=== PATIENT | male | born 1965 | race Caucasian/White ===

== ENCOUNTER 2016-02-21 03:40 | Inpatient (IN) | payer OTHER ==
[~2016-02-21] VITALS: Ht 182.9 cm; Wt 106.8 kg
[~2016-02-21 03:40] MED LIST: ADVIL200 MG PO; ALEVE220 M2 PO; AMLODIPINE BESYL5 MG PO; ATIVAN0.5 MG PO; ATORVASTATIN CA80 MG PO; BACLOFEN10 MG PO; BUSPAR10 MG PO; CATAPRES0.1 MG PO; CHLORDIAZEPOXID25 MG PO; CIPROFLOXACIN500 M1 PO; CLINDAMYCIN HC300 MG PO; COLCRYS0.6 MG PO; DAILY VALUE1 EACH PO; DAILY VITAMIN1 EAC8 PO; DESYREL100 MG PO; ENDOCET 5-3251 EACH PO; FLEXERIL10 MG PO; FOLIC ACID1 MG PO; HYDROCHLOROTHIA25 MG PO; INDOCIN25 MG PO; INDOCIN50 MG PO; LIPITOR80 MG PO; LISINOPRIL10 MG PO; LISINOPRIL20 MG PO; LISINOPRIL5 MG PO; LORTAB 10-3251 EACH PO; LOTENSIN20 M1 PO; LOTENSIN20 M2 PO; MAG-OXIDE400 MG PO; METRONIDAZOLE500 MG PO; MOTRIN800 MG PO; NEURONTIN300 MG PO; PAXIL20 MG PO; PERCOCET 5/31 TABLET PO; PREDNISONE10 MG PO; PREDNISONE50 MG PO; SEROQUEL100 MG PO; SERTRALINE HCL50 MG PO; THERAGRAN1 TABLET PO; TRAZODONE HCL100 MG PO; TRAZODONE HCL50 MG PO; TYLENOL EXTRA500 MG PO; Tums,OsCal PO; VITAMIN B-1100 MG PO; ZESTRIL,PRINIVI10 MG PO; celeXA PO
[2016-02-21 04:22] LABS: HEMATOCRIT 44.3 % (38.0-50.0); MCH 34.7 PG (29.0-34.0); MCHC 34.8 G/DL (30.0-36.0); MCV 99.8 FL (86-99); MEAN PLAT.VOLUME 9.9 uM^3 (9.0-12.4); PLATELET COUNT 175 K/uL (156-360); RBC DIS.WIDTH-CV 14.6 % (11.8-14.6); RBC DIS.WIDTH-SD 51.4 % (39-53); RED BLOOD COUNT 4.44 M/uL (4.00-5.50); WHITE BLOOD COUNT 13.7 K/uL (4.1-10.2)
[2016-02-21 04:30] LABS: CHLORIDE 94 mEq/L (99-109); POTASSIUM 3.8 mEq/L (3.7-5.4); SODIUM 138 mEq/L (136-147)
[2016-02-21 04:33] LABS: GLUCOSE 165 mg/dL (70-99)
[2016-02-21 04:34] LABS: ANION GAP 18 MEQ/L (2-14)
[2016-02-21 04:35] LABS: TOTAL BILIRUBIN 1.4 mg/dL (0.0-1.0)
[2016-02-21 04:36] LABS: ALKALINE PHOSPHATASE 133 IU/L (3-129); SERUM ETHYL ALCOHOL < 10 mg/dL
[2016-02-21 04:37] LABS: GFR ESTIMATE (CALCULATED) > 59 mL/min/
[2016-02-21 04:38] LABS: UREA NITROGEN (BUN) 9 mg/dL (9-23)
[2016-02-21 04:40] LABS: LIPASE 46 U/L (1.0-51.0)
[2016-02-21] MEDS ORDERED: ZOFRAN ODT4 MG PO (10:48)
[2016-02-21] MEDS ORDERED: THIAMINE HCL100 MG PO (10:48)
[2016-02-21] MEDS ORDERED: LIBRIUM25 MG PO (10:48)
[2016-02-21 11:53] LABS: ADD MIUA? YES; BILIRUBIN SMALL; BLOOD NEGATIVE; GLUCOSE (STRIP) NEGATIVE; KETONES TRACE; LEUKOCYTES SMALL; NITRITE POSITIVE; PROTEIN (STRIP) 30; SPECIFIC GRAVITY 1.033 (1.000-1.030)
[2016-02-21 11:54] LABS: COLOR DK YELLOW ((YELLOW))
[2016-02-21 12:24] LABS: BACTERIA RARE; EPITHELIAL CELLS 1+; MUCUS 3+; RED BLOOD CELLS 0-5 /HPF (0-5); UCUL ADDED? NO; WHITE BLOOD CELLS 0-5 /HPF (0-5)
[2016-02-21 12:25] LABS: CASTS PRESENT /LPF; CRYSTALS NONE SEEN; HYALINE CASTS 0-5 /LPF
[2016-02-21] MEDS ORDERED: HYDROCODON-ACE1 EAC9 PO (13:33)
[2016-02-21] MEDS ORDERED: DESYREL100 MG PO (13:33)
[2016-02-21 17:27] VITALS: BP 187/109
[2016-02-21 23:06] VITALS: BP 156/95
[2016-02-22 06:54] LABS: ALKALINE PHOSPHATASE 101 IU/L (3-129); DIRECT BILIRUBIN 0.4 mg/dL (0.0-0.3); HDL CHOLESTEROL 63 MG/DL (Desirable>=40); LDL CHOLESTEROL 55 mg/dL (Desirable<100); NON-HDL CHOLESTEROL 88 mg/dL (Desirable<160); TOTAL BILIRUBIN 1.1 MG/DL (0.0-1.0); TOTAL CHOLESTEROL 151 mg/dL (Desirable<200); TRIGLYCERIDES 167 MG/DL (Normal: <150)
[2016-02-22 07:11] LABS: Estimated Average Glucose 117 mg/dL (70-123); HEMOGLOBIN A1c (GLYCOHEMOGLOB) 5.7 % HGB (Below 5.7)
[2016-02-22 08:00] VITALS: BP 159/111
[2016-02-22 09:37] LABS: EOSINOPHIL (%) 3.2 % (0-5); EOSINOPHIL COUNT 0.2 K/uL (0-0.3); HEMATOCRIT 37.9 % (38.0-50.0); IMMATURE GRANULOCYTE (%) 0.7 % (0.0-0.7); IMMATURE GRANULOCYTE COUNT 0.1 K/uL; LYMPHOCYTE COUNT 1.4 K/uL (1.0-2.8); MCH 35.3 PG (29.0-34.0); MCHC 34.3 G/DL (30.0-36.0); MEAN PLAT.VOLUME 10.1 uM^3 (9.0-12.4); MONOCYTE (%) 14.4 % (3-12); NEUTROPHIL (%) 60.5 % (45-76); NEUTROPHIL COUNT 4.2 K/uL (1.8-6.4); RBC DIS.WIDTH-CV 14.7 % (11.8-14.6); RBC DIS.WIDTH-SD 54.4 % (39-53); RED BLOOD COUNT 3.68 M/uL (4.00-5.50)
[2016-02-22 09:39] LABS: PLATELET COUNT 120 K/uL (156-360); WHITE BLOOD COUNT 6.9 K/uL (4.1-10.2)
[2016-02-22 09:52] LABS: ALKALINE PHOSPHATASE 93 IU/L (3-129); ANION GAP 9 MEQ/L (2-14); CHLORIDE 97 MEQ/L (99-109); GFR ESTIMATE (CALCULATED) > 59 mL/min/; GLUCOSE 144 mg/dL (70-99); MAGNESIUM 1.6 mg/dl (1.3-2.7); POTASSIUM 3.9 MEQ/L (3.7-5.4); SAMPLE HEMOLYSIS CHECK 0; SAMPLE ICTERIC CHECK 0; SAMPLE LIPEMIA CHECK 0; SODIUM 137 MEQ/L (136-147); TOTAL BILIRUBIN 0.9 MG/DL (0.0-1.0); UREA NITROGEN (BUN) 11 mg/dL (9-23)
[2016-02-22 16:00] VITALS: BP 160/86
[2016-02-22 23:10] VITALS: BP 130/89
[2016-02-23 05:07] VITALS: BP 115/81
[2016-02-23 08:25] VITALS: BP 147/93; BP 184/116
[2016-02-23 15:16] LABS: HEMATOCRIT 39.4 % (38.0-50.0); MCH 34.9 PG (29.0-34.0); MCHC 33.8 G/DL (30.0-36.0); MCV 103.4 FL (86-99); MEAN PLAT.VOLUME 10.3 uM^3 (9.0-12.4); PLATELET COUNT 135 K/uL (156-360); RBC DIS.WIDTH-SD 55.6 % (39-53); RED BLOOD COUNT 3.81 M/uL (4.00-5.50); WHITE BLOOD COUNT 6.8 K/uL (4.1-10.2)
[2016-02-23 16:03] VITALS: BP 196/104
[2016-02-23 20:37] VITALS: BP 160/91
[2016-02-24] VITALS: BP 123/81
[2016-02-24 04:00] VITALS: BP 107/61
[2016-02-24 06:44] LABS: HEMATOCRIT 39.5 % (38.0-50.0); MCH 34.6 PG (29.0-34.0); MCHC 33.4 G/DL (30.0-36.0); MCV 103.4 FL (86-99); MEAN PLAT.VOLUME 10.2 uM^3 (9.0-12.4); PLATELET COUNT 149 K/uL (156-360); RBC DIS.WIDTH-CV 15.2 % (11.8-14.6); RBC DIS.WIDTH-SD 56.8 % (39-53); RED BLOOD COUNT 3.82 M/uL (4.00-5.50); WHITE BLOOD COUNT 5.5 K/uL (4.1-10.2)
[2016-02-24 07:13] LABS: ANION GAP 11 MEQ/L (2-14); CHLORIDE 104 MEQ/L (99-109); GFR ESTIMATE (CALCULATED) > 59 mL/min/; GLUCOSE 116 mg/dL (70-99); MAGNESIUM 1.6 mg/dl (1.3-2.7); POTASSIUM 3.8 MEQ/L (3.7-5.4); SAMPLE HEMOLYSIS CHECK 0; SAMPLE ICTERIC CHECK 0; SAMPLE LIPEMIA CHECK 0; SODIUM 139 MEQ/L (136-147); UREA NITROGEN (BUN) 8 mg/dL (9-23)
[2016-02-24 08:40] VITALS: BP 152/94
[2016-02-24] MEDS ORDERED: THIAMINE HCL100 MG PO (11:33)
[2016-02-24] MEDS ORDERED: AMLODIPINE BESYL5 MG PO (11:33)
[2016-02-24] MEDS ORDERED: CHLORDIAZEPOXID25 MG PO (11:33)
[2016-02-24] MEDS ORDERED: FOLIC ACID1 MG PO (11:33)
== END 2016-02-24 12:25 | disposition home or self-care (01) | DRG 897 ==
LOC: EME 03:40 → EDOF 11:34 → 5EAST 16:53
PROVIDERS: Hospitalist; Internal Medicine
DX: F10.239 Alcohol dependence with withdrawal, unspecified (principal); E83.42 Hypomagnesemia; I10 Essential (primary) hypertension; E78.5 Hyperlipidemia, unspecified; R79.89 Other specified abnormal findings of blood chemistry; R73.09 Other abnormal glucose; D69.6 Thrombocytopenia, unspecified; F32.9 Major depressive disorder, single episode, unspecified; M54.9 Dorsalgia, unspecified; F17.210 Nicotine dependence, cigarettes, uncomplicated; Z82.49 Family history of ischemic heart disease and other diseases of the circulatory system; Z91.14 Patient's other noncompliance with medication regimen
CPT/HCPCS: 80048; 80053; 80061; 80076; 81003; 83036; 83690; 83735; 85025; 85027; 93005; 99281; 99285; G0480; J2060; J3411; J3475; J7030

== ENCOUNTER 2016-06-04 03:55 | Inpatient (IN) | payer OTHER ==
[~2016-06-04] VITALS: Ht 182.9 cm; Wt 106.3 kg
[~2016-06-04 03:55] MED LIST changes: +HYDROCODON-ACE1 EAC9 PO; +LIBRIUM25 MG PO; +LORCET 5-325 M1 EACH PO; +MOBIC15 MG PO; +MULTIPLE VITAM1 EACH PO; +NEURONTIN400 MG PO; +THIAMINE HCL100 MG PO; +ZANAFLEX2 M1 PO; +ZOFRAN ODT4 MG PO
[2016-06-04 04:50] LABS: HEMATOCRIT 45.7 % (38.0-50.0); MCH 33.5 PG (29.0-34.0); MCHC 35.7 G/DL (30.0-36.0); MEAN PLAT.VOLUME 10.4 uM^3 (9.0-12.4); PLATELET COUNT 196 K/uL (156-360); RBC DIS.WIDTH-SD 48.6 % (39-53); RED BLOOD COUNT 4.86 M/uL (4.00-5.50); WHITE BLOOD COUNT 18.3 K/uL (4.1-10.2)
[2016-06-04 04:58] LABS: CHLORIDE 98 mEq/L (99-109); POTASSIUM 3.3 mEq/L (3.7-5.4); SODIUM 137 mEq/L (136-147)
[2016-06-04 05:03] LABS: ALKALINE PHOSPHATASE 92 IU/L (3-129); ANION GAP 18 MEQ/L (2-14); GLUCOSE 160 mg/dL (70-99); TOTAL BILIRUBIN 1.6 mg/dL (0.0-1.0)
[2016-06-04 05:04] LABS: GFR ESTIMATE (CALCULATED) > 59 mL/min/
[2016-06-04 05:05] LABS: UREA NITROGEN (BUN) 7 mg/dL (9-23)
[2016-06-04 05:07] LABS: LIPASE 117 U/L (1.0-51.0)
[2016-06-04 05:15] LABS: TROP-I INTERPRETATION NEGATIVE; TROPONIN-I < 0.01 ng/mL (0.0-0.30)
[2016-06-04 05:30] LABS: SERUM ETHYL ALCOHOL 161 mg/dL
[2016-06-04 07:25] LABS: MAGNESIUM 1.4 mg/dl (1.3-2.7)
[2016-06-04] MEDS ORDERED: LISINOPRIL20 MG PO (07:54)
[2016-06-04 08:18] LABS: POINT-OF-CARE METER ID UU13113702
[2016-06-04 10:43] LABS: ADD MIUA? NO; BILIRUBIN NEGATIVE; BLOOD NEGATIVE; COLOR YELLOW ((YELLOW)); GLUCOSE (STRIP) NEGATIVE; KETONES 5; LEUKOCYTES NEGATIVE; NITRITE NEGATIVE; PROTEIN (STRIP) NEGATIVE; SPECIFIC GRAVITY 1.027 (1.000-1.030); UCUL ADDED? NO; UROBILINOGEN 0.2 MG/DL (0.2-1.0)
[2016-06-04 11:10] VITALS: BP 180/105
[2016-06-04 11:46] VITALS: BP 180/90
[2016-06-04 12:46] VITALS: BP 155/85
[2016-06-04 16:56] VITALS: BP 167/89
[2016-06-04 18:01] LABS: INTERNAL CONTROL VALID? YES
[2016-06-04 18:34] LABS: C DIFF TOXIN POSITIVE (NEGATIVE)
[2016-06-04 18:43] LABS: PROBE CHECK PASS
[2016-06-04 19:35] LABS: INTERNAL CONTROL VALID? YES
[2016-06-04 20:00] VITALS: BP 162/84
[2016-06-05 00:22] VITALS: BP 147/92
[2016-06-05 04:10] VITALS: BP 171/43
[2016-06-05 06:48] LABS: ALKALINE PHOSPHATASE 93 IU/L (3-129); ANION GAP 10 MEQ/L (2-14); CHLORIDE 94 MEQ/L (99-109); GFR ESTIMATE (CALCULATED) > 59 mL/min/; GLUCOSE 134 mg/dL (70-99); LIPASE 51 U/L (1.0-51.0); MAGNESIUM 1.4 mg/dl (1.3-2.7); POTASSIUM 3.5 MEQ/L (3.7-5.4); SAMPLE HEMOLYSIS CHECK 0; SAMPLE ICTERIC CHECK 0; SAMPLE LIPEMIA CHECK 0; SODIUM 133 MEQ/L (136-147); TOTAL BILIRUBIN 2.2 MG/DL (0.0-1.0); UREA NITROGEN (BUN) 4 mg/dL (9-23)
[2016-06-05 07:04] LABS: EOSINOPHIL (%) 1.1 % (0-5); EOSINOPHIL COUNT 0.1 K/uL (0-0.3); HEMATOCRIT 39.9 % (38.0-50.0); IMMATURE GRANULOCYTE (%) 0.5 % (0.0-0.7); IMMATURE GRANULOCYTE COUNT 0.1 K/uL; LYMPHOCYTE COUNT 1.4 K/uL (1.0-2.8); MCH 32.9 PG (29.0-34.0); MCHC 34.3 G/DL (30.0-36.0); MCV 95.7 FL (86-99); MONOCYTE (%) 9.2 % (3-12); MONOCYTE COUNT 1.2 K/uL (0-0.8); NEUTROPHIL (%) 77.9 % (45-76); RBC DIS.WIDTH-CV 13.8 % (11.8-14.6); RBC DIS.WIDTH-SD 49.1 % (39-53); RED BLOOD COUNT 4.17 M/uL (4.00-5.50)
[2016-06-05 07:15] LABS: WHITE BLOOD COUNT 12.8 K/uL (4.1-10.2)
[2016-06-05 07:44] LABS: MEAN PLAT.VOLUME 10.1 uM^3 (9.0-12.4)
[2016-06-05 07:45] LABS: PLAT.SUFFICIENCY DECREASED
[2016-06-05 07:56] LABS: PLATELET COUNT 129 K/uL (156-360)
[2016-06-05 08:04] VITALS: BP 158/86
[2016-06-05 12:08] VITALS: BP 155/85
[2016-06-05 15:45] VITALS: BP 142/88
[2016-06-05 20:01] VITALS: BP 135/85
[2016-06-06] VITALS (7 sets, daily range): BP systolic 141–187; BP diastolic 62–99
[2016-06-06 05:51] LABS: HEMATOCRIT 41.2 % (38.0-50.0); MCH 32.6 PG (29.0-34.0); MCHC 33.7 G/DL (30.0-36.0); MCV 96.5 FL (86-99); MEAN PLAT.VOLUME 11.2 uM^3 (9.0-12.4); PLATELET COUNT 157 K/uL (156-360); RBC DIS.WIDTH-CV 13.5 % (11.8-14.6); RED BLOOD COUNT 4.27 M/uL (4.00-5.50); WHITE BLOOD COUNT 11.7 K/uL (4.1-10.2)
[2016-06-06 06:25] LABS: ALKALINE PHOSPHATASE 84 IU/L (3-129); ANION GAP 8 MEQ/L (2-14); CHLORIDE 99 MEQ/L (99-109); GFR ESTIMATE (CALCULATED) > 59 mL/min/; POTASSIUM 3.6 MEQ/L (3.7-5.4); SAMPLE HEMOLYSIS CHECK 0; SAMPLE ICTERIC CHECK 0; SAMPLE LIPEMIA CHECK 0; SODIUM 135 MEQ/L (136-147); UREA NITROGEN (BUN) 6 mg/dL (9-23)
[2016-06-06 06:26] LABS: GLUCOSE 92 mg/dL (70-99); MAGNESIUM 1.8 mg/dl (1.3-2.7); TOTAL BILIRUBIN 1.4 MG/DL (0.0-1.0)
[2016-06-07 04:24] VITALS: BP 127/91
[2016-06-07 06:28] LABS: HEMATOCRIT 38.6 % (38.0-50.0); MCH 32.7 PG (29.0-34.0); MCHC 33.7 G/DL (30.0-36.0); MCV 97.2 FL (86-99); MEAN PLAT.VOLUME 10.9 uM^3 (9.0-12.4); PLATELET COUNT 171 K/uL (156-360); RBC DIS.WIDTH-CV 13.5 % (11.8-14.6); RBC DIS.WIDTH-SD 48.7 % (39-53); RED BLOOD COUNT 3.97 M/uL (4.00-5.50); WHITE BLOOD COUNT 9.9 K/uL (4.1-10.2)
[2016-06-07 06:52] LABS: ANION GAP 8 MEQ/L (2-14); CHLORIDE 103 MEQ/L (99-109); GFR ESTIMATE (CALCULATED) > 59 mL/min/; GLUCOSE 126 mg/dL (70-99); MAGNESIUM 1.7 mg/dl (1.3-2.7); POTASSIUM 3.8 MEQ/L (3.7-5.4); SAMPLE HEMOLYSIS CHECK 0; SAMPLE ICTERIC CHECK 0; SAMPLE LIPEMIA CHECK 0; SODIUM 139 MEQ/L (136-147); UREA NITROGEN (BUN) 8 mg/dL (9-23)
[2016-06-07 07:44] VITALS: BP 152/90
[2016-06-07 11:36] VITALS: BP 118/83
[2016-06-07 15:51] VITALS: BP 138/80
[2016-06-07 19:51] VITALS: BP 123/80
[2016-06-07 23:53] VITALS: BP 140/86
[2016-06-08 04:15] VITALS: BP 156/96
[2016-06-08 06:52] LABS: ANION GAP 9 MEQ/L (2-14); CHLORIDE 103 MEQ/L (99-109); GFR ESTIMATE (CALCULATED) > 59 mL/min/; MAGNESIUM 1.6 mg/dl (1.3-2.7); POTASSIUM 3.8 MEQ/L (3.7-5.4); SAMPLE HEMOLYSIS CHECK 0; SAMPLE ICTERIC CHECK 0; SAMPLE LIPEMIA CHECK 0; SODIUM 139 MEQ/L (136-147); UREA NITROGEN (BUN) 10 mg/dL (9-23)
[2016-06-08 07:01] LABS: GLUCOSE 222 mg/dL (70-99)
[2016-06-08 07:46] VITALS: BP 160/96
[2016-06-08] MEDS ORDERED: FOLIC ACID1 MG PO (09:10)
[2016-06-08] MEDS ORDERED: VANCOCIN 250 M250 MG PO (09:10)
[2016-06-08] MEDS ORDERED: FLAGYL500 MG PO (09:10)
[2016-06-08] MEDS ORDERED: THIAMINE HCL100 MG PO (09:10)
[2016-06-08] MEDS ORDERED: LORCET 5-325 M1 EACH PO (09:10)
[2016-06-08] MEDS ORDERED: PREDNISONE20 MG PO (09:10)
[2016-06-08] MEDS ORDERED: ACIDOPHILUS1 EAC1 PO (09:17)
== END 2016-06-08 13:31 | disposition home or self-care (01) | DRG 872 ==
LOC: EME 03:55 → EDOF 06:30 → 3EAST 06:30
PROVIDERS: Emergency Medicine; Family Medicine; Hospitalist; Internal Medicine Gastroenterology
DX: A41.9 Sepsis, unspecified organism (principal); A04.7 Enterocolitis due to Clostridium difficile; K57.92 Diverticulitis of intestine, part unspecified, without perforation or abscess without bleeding; F10.239 Alcohol dependence with withdrawal, unspecified; K92.1 Melena; F10.229 Alcohol dependence with intoxication, unspecified; I10 Essential (primary) hypertension; E87.6 Hypokalemia; K57.30 Diverticulosis of large intestine without perforation or abscess without bleeding; K76.0 Fatty (change of) liver, not elsewhere classified; E78.5 Hyperlipidemia, unspecified; F17.210 Nicotine dependence, cigarettes, uncomplicated; I16.0 Hypertensive urgency; G89.29 Other chronic pain; E66.9 Obesity, unspecified; Z68.31 Body mass index [BMI] 31.0-31.9, adult; M10.9 Gout, unspecified; E83.42 Hypomagnesemia
CPT/HCPCS: 74177; 76705; 80048; 80053; 80069; 80076; 81003; 82272; 82948; 83605; 83630; 83690; 83735; 84484; 85025; 85027; 86850; 86900; 86901; 87040; 87493; 87506; 93005; 99281; 99285; G0480; J0360; J0744; J1644; J2060; J2270; J2405; J3411; J3475; J7030; J7120; J7512; S0030

== ENCOUNTER 2017-02-05 02:27 | Inpatient (IN) | payer OTHER ==
[~2017-02-05] VITALS: Ht 182.9 cm; Wt 103.1 kg
[~2017-02-05 02:27] MED LIST changes: +ACIDOPHILUS1 EAC1 PO; +FLAGYL500 MG PO; +PREDNISONE20 MG PO; +VANCOCIN 250 M250 MG PO
[2017-02-05 03:02] LABS: ADD MIUA? YES; BILIRUBIN NEGATIVE; BLOOD NEGATIVE; COLOR AMBER ((YELLOW)); GLUCOSE (STRIP) 150; KETONES 5; LEUKOCYTES NEGATIVE; NITRITE NEGATIVE; PROTEIN (STRIP) 100; SPECIFIC GRAVITY 1.014 (1.000-1.030)
[2017-02-05 03:07] LABS: HEMATOCRIT 44.8 % (38.0-50.0); MCH 36.2 PG (29.0-34.0); MCHC 35.9 G/DL (30.0-36.0); MCV 100.7 FL (86-99); MEAN PLAT.VOLUME 10.4 uM^3 (9.0-12.4); PLATELET COUNT 258 K/uL (156-360); RBC DIS.WIDTH-CV 11.9 % (11.8-14.6); RBC DIS.WIDTH-SD 44.3 % (39-53); RED BLOOD COUNT 4.45 M/uL (4.00-5.50); WHITE BLOOD COUNT 19.7 K/uL (4.1-10.2)
[2017-02-05 03:42] LABS: RED BLOOD CELLS 0-5 /HPF (0-5); WHITE BLOOD CELLS 0-5 /HPF (0-5)
[2017-02-05 03:43] LABS: BACTERIA 3+ /HPF; CASTS PRESENT /LPF; EPITHELIAL CELLS 1+ /HPF; HYALINE CASTS 0-5 /LPF; MUCUS 2+ /LPF; UCUL ADDED? YES
[2017-02-05 03:44] LABS: AMORPHOUS URATES CRYSTALS 1+
[2017-02-05 04:15] LABS: LIPASE 32 U/L (1.0-51.0); SERUM ETHYL ALCOHOL 39 mg/dL
[2017-02-05 05:00] LABS: ALKALINE PHOSPHATASE 132 IU/L (3-129); ANION GAP 13 MEQ/L (2-14); CHLORIDE 97 MEQ/L (99-109); GFR ESTIMATE (CALCULATED) > 59 mL/min/ (58.99-99999); GLUCOSE 179 mg/dL (70-99); POTASSIUM 3.7 MEQ/L (3.7-5.4); SAMPLE HEMOLYSIS CHECK 0; SAMPLE ICTERIC CHECK 0; SAMPLE LIPEMIA CHECK 0; SODIUM 133 MEQ/L (136-147); TOTAL BILIRUBIN 1.7 MG/DL (0.0-1.0); UREA NITROGEN (BUN) 6 mg/dL (9-23)
[2017-02-05] MEDS ORDERED: PROBIOTIC1 EAC1 PO (07:39)
[2017-02-05] MEDS ORDERED: VITAMIN B-1100 MG PO (07:40)
[2017-02-05 08:53] VITALS: BP 177/102
[2017-02-05 09:06] VITALS: BP 177/102
[2017-02-05 13:10] VITALS: BP 181/95
[2017-02-05 15:07] VITALS: BP 173/79
[2017-02-05 19:08] LABS: C DIFF TOXIN POSITIVE (NEGATIVE)
[2017-02-05 19:21] LABS: PROBE CHECK PASS
[2017-02-06 06:15] LABS: HEMATOCRIT 43.5 % (38.0-50.0); MCH 34.6 PG (29.0-34.0); MCHC 33.6 G/DL (30.0-36.0); MCV 103.1 FL (86-99); MEAN PLAT.VOLUME 10.5 uM^3 (9.0-12.4); PLATELET COUNT 234 K/uL (156-360); RBC DIS.WIDTH-CV 12.1 % (11.8-14.6); RED BLOOD COUNT 4.22 M/uL (4.00-5.50); WHITE BLOOD COUNT 17.5 K/uL (4.1-10.2)
[2017-02-06 07:13] LABS: ALKALINE PHOSPHATASE 102 IU/L (3-129); ANION GAP 11 MEQ/L (2-14); CHLORIDE 100 MEQ/L (99-109); DIRECT BILIRUBIN 0.5 mg/dL (0.0-0.3); GFR ESTIMATE (CALCULATED) > 59 mL/min/ (58.99-99999); GLUCOSE 121 mg/dL (70-99); POTASSIUM 3.6 MEQ/L (3.7-5.4); SAMPLE HEMOLYSIS CHECK 0; SAMPLE ICTERIC CHECK 0; SAMPLE LIPEMIA CHECK 0; SODIUM 136 MEQ/L (136-147); UREA NITROGEN (BUN) 7 mg/dL (9-23)
[2017-02-06 07:16] LABS: TOTAL BILIRUBIN 1.3 MG/DL (0.0-1.0)
[2017-02-06 09:28] VITALS: BP 136/68
[2017-02-06 09:35] LABS: MAGNESIUM 1.8 mg/dl (1.3-2.7)
[2017-02-06 11:28] VITALS: BP 139/83
[2017-02-06 16:18] VITALS: BP 146/87
[2017-02-07 05:20] LABS: BASOPHIL COUNT 0.1 K/uL (0-0.1); EOSINOPHIL (%) 1.3 % (0-5); EOSINOPHIL COUNT 0.2 K/uL (0-0.3); HEMATOCRIT 43.6 % (38.0-50.0); IMMATURE GRANULOCYTE (%) 0.8 % (0.0-0.7); IMMATURE GRANULOCYTE COUNT 0.1 K/uL; MCH 35.1 PG (29.0-34.0); MCHC 33.7 G/DL (30.0-36.0); MCV 104.1 FL (86-99); MEAN PLAT.VOLUME 10.1 uM^3 (9.0-12.4); MONOCYTE (%) 14.3 % (3-12); MONOCYTE COUNT 2.4 K/uL (0-0.8); NEUTROPHIL (%) 71.3 % (45-76); PLATELET COUNT 237 K/uL (156-360); RBC DIS.WIDTH-CV 12.1 % (11.8-14.6); RBC DIS.WIDTH-SD 47.1 % (39-53); RED BLOOD COUNT 4.19 M/uL (4.00-5.50); WHITE BLOOD COUNT 16.9 K/uL (4.1-10.2)
[2017-02-07 06:04] LABS: ALKALINE PHOSPHATASE 107 IU/L (3-129); ANION GAP 11 MEQ/L (2-14); CHLORIDE 105 MEQ/L (99-109); DIRECT BILIRUBIN 0.4 mg/dL (0.0-0.3); GFR ESTIMATE (CALCULATED) > 59 mL/min/ (58.99-99999); GLUCOSE 112 mg/dL (70-99); POTASSIUM 4.3 MEQ/L (3.7-5.4); SAMPLE HEMOLYSIS CHECK 0; SAMPLE ICTERIC CHECK 0; SAMPLE LIPEMIA CHECK 0; SODIUM 138 MEQ/L (136-147); UREA NITROGEN (BUN) 7 mg/dL (9-23)
[2017-02-07 06:07] LABS: TOTAL BILIRUBIN 0.9 MG/DL (0.0-1.0)
[2017-02-07 07:49] VITALS: BP 138/79
[2017-02-07 12:16] VITALS: BP 128/75
[2017-02-07 16:13] VITALS: BP 143/83
[2017-02-07 23:29] VITALS: BP 128/80
[2017-02-08 07:35] VITALS: BP 127/81
[2017-02-08] MEDS ORDERED: VANCOMYCIN125 MG/2.5 PO (11:07)
[2017-02-08 16:42] VITALS: BP 131/80
[2017-02-09 00:03] VITALS: BP 139/93
[2017-02-09 06:50] LABS: HEMATOCRIT 44.3 % (38.0-50.0); MCH 34.1 PG (29.0-34.0); MCV 103.5 FL (86-99); MEAN PLAT.VOLUME 10.2 uM^3 (9.0-12.4); PLATELET COUNT 260 K/uL (156-360); RBC DIS.WIDTH-CV 11.9 % (11.8-14.6); RBC DIS.WIDTH-SD 45.7 % (39-53); RED BLOOD COUNT 4.28 M/uL (4.00-5.50); WHITE BLOOD COUNT 14.4 K/uL (4.1-10.2)
[2017-02-09 07:18] LABS: ALKALINE PHOSPHATASE 117 IU/L (3-129); ANION GAP 9 MEQ/L (2-14); CHLORIDE 105 MEQ/L (99-109); GFR ESTIMATE (CALCULATED) > 59 mL/min/ (58.99-99999); GLUCOSE 118 mg/dL (70-99); MAGNESIUM 1.6 mg/dl (1.3-2.7); POTASSIUM 4.3 MEQ/L (3.7-5.4); SAMPLE HEMOLYSIS CHECK 0; SAMPLE ICTERIC CHECK 0; SAMPLE LIPEMIA CHECK 0; SODIUM 139 MEQ/L (136-147); TOTAL BILIRUBIN 0.6 MG/DL (0.0-1.0); UREA NITROGEN (BUN) 9 mg/dL (9-23)
[2017-02-09 07:45] VITALS: BP 118/73
[2017-02-09 16:07] VITALS: BP 131/81
[2017-02-10 00:27] VITALS: BP 116/70
[2017-02-10 08:13] VITALS: BP 110/60
[2017-02-10] MEDS ORDERED: LISINOPRIL20 MG PO (10:36)
[2017-02-10] MEDS ORDERED: BENTYL20 MG PO (10:36)
[2017-02-10] MEDS ORDERED: VANCOMYCIN HCL250 MG PO (10:38)
[2017-02-10] MEDS ORDERED: FLAGYL500 MG PO (10:38)
[2017-02-10] MEDS ORDERED: ENDOCET 5-3251 EACH PO (10:39)
[2017-02-10 10:55] VITALS: BP 110/60
[2017-02-10] MEDS ORDERED: DILAUDID2 MG PO (12:21)
== END 2017-02-10 13:13 | disposition home or self-care (01) | DRG 372 ==
LOC: EME 02:27 → 5SOUTH 07:43 → EDOF 07:43 → ENRESERV 07:54 → EDOF 08:09 → 4EAST 08:34 → ENRESERV 02-07 11:10 → 5SOUTH 02-07 16:00 → ENPENDDIS 02-10 → 5SOUTH 02-10 13:13
PROVIDERS: Internal Medicine; Physician Assistant Medical; Specialist
DX: A04.71 Enterocolitis due to Clostridium difficile, recurrent (principal); I10 Essential (primary) hypertension; F10.230 Alcohol dependence with withdrawal, uncomplicated; Y90.1 Blood alcohol level of 20-39 mg/100 ml; E87.6 Hypokalemia; E83.42 Hypomagnesemia; R17 Unspecified jaundice; F17.210 Nicotine dependence, cigarettes, uncomplicated; Z23 Encounter for immunization
CPT/HCPCS: 74177; 80048; 80053; 80076; 81003; 83690; 83735; 84100; 85025; 85027; 87086; 87493; 87506; 90686; 99281; 99285; G0480; J0744; J1170; J1650; J1956; J2060; J2270; J2405; J3010; J3411; J3475; J7030; S0030

== ENCOUNTER 2017-10-08 14:44 | Emergency (ER) | payer OTHER ==
[~2017-10-08] VITALS: Ht 182.9 cm; Wt 115.0 kg
[~2017-10-08 14:44] MED LIST changes: +BENTYL20 MG PO; +DILAUDID2 MG PO; +PROBIOTIC1 EAC1 PO; +VANCOMYCIN HCL250 MG PO; +VANCOMYCIN125 MG/2.5 PO
[2017-10-08 17:08] VITALS: BP 152/105
== END 2017-10-08 17:11 | disposition home or self-care (01) ==
LOC: EME 14:44
DX: S01.81XA Laceration without foreign body of other part of head, initial encounter (principal); F10.129 Alcohol abuse with intoxication, unspecified; Z23 Encounter for immunization; W01.0XXA Fall on same level from slipping, tripping and stumbling without subsequent striking against object, initial encounter; I10 Essential (primary) hypertension; F32.9 Major depressive disorder, single episode, unspecified; E78.5 Hyperlipidemia, unspecified; M10.9 Gout, unspecified; R73.03 Prediabetes; F17.200 Nicotine dependence, unspecified, uncomplicated
CPT/HCPCS: 70450; 99281; 99284